=== PATIENT | male | born 1960 | race Caucasian/White ===

== ENCOUNTER 2023-10-13 16:41 | Emergency (ER) | payer BC, SELFPAY ==
[2023-10-13 16:41] VITALS: BMI 37.5
[2023-10-13 16:45] VITALS: BP 128/85
[2023-10-13 17:00] VITALS: BP 133/77
[2023-10-13 18:00] VITALS: BP 138/84
--- NOTE | 2023-10-13 18:31 | ED.GENMED ---
History of Present Illness
General
Chief Complaint: Weakness
Source: patient
Time Seen by Provider: 10/13/23 17:33
Travel History
Have you had any contact with someone who has COVID-19?: No
Do you have any symptoms of coronavirus? Fever > 100 degrees, chills, cough, shortness of breath, sore throat, loss of taste or smell, muscle aches, or headache?: No
History of Present Illness
History of Present Illness:
63-year-old male presents to the emergency room complaining of cough, fever, chills, muscle aches. Patient states he feels 'the worst he is ever felt'. He has a cough which is not particularly productive. He does have a history of asthma but has
not been using inhalers much. Patient did contact his primary care provider who called in a prescription for a Z-Kodak which she started yesterday. He does not feeling better.
Past History
Past History
ED Past Medical History: Asthma, HTN and Other (obesity, renal stones, diverticulitis)
ED Past Surgical History: None
Social History
Tobacco: Non-smoker
Phy Exam
Physical Exam
Physical Exam:
General: Awake, Alert, Oriented X3. No acute distress.
Vitals: unremarkable
Head: Atraumatic
Eyes: Pupils equal, EOMI
Throat: Airway intact, no exudates
Neck: Trachea midline
Lungs: X-ray wheezing bilaterally
Heart: Regular rate, no murmurs
Abd: Soft, Nontender, No pulsatile mass
Neuro: Nonfocal
Skin: Warm, dry, no rash
Extremities: pulses equal b/l, no edema
Course
Orders/Labs/Results
Orders:
Orders
10/13/23 18:15
Chest [CR Chest - 2 Views ] Urgent
Comment:
Reason For Exam: cough
10/13/23 18:27
0.9% Sodium Chloride 500 ml [Nss] 500 ml IV BOLUS
Ipratropium/Albuterol Sulfate [Duoneb] 3 ml INH R NOW ONE
10/13/23 18:31
Basic Metabolic Panel Urgent
COVID-19 Antigen Urgent
Source: Nasal Swab
Complete Blood Count/With Diff Urgent
Influenza A+B Rapid Molecular Urgent
JEROME Source: Nasal Swab
Specimen Description:
10/13/23 20:20
Dexamethasone Sod Phosphate [Decadron] 10 mg IV NOW STA
Ipratropium/Albuterol Sulfate [Duoneb] 3 ml INH R NOW ONE
Abnormal Lab Results
10/13/23
18:31
WBC 4.0 L 10^3/uL
(4.8-10.8)
Absolute Lymphs (auto) 1.1 L 10^3/uL
(1.2-3.4)
Monocytes % 10.2 H %
(1.7-9.3)
Sodium 134 L mmol/L
(135-145)
BUN 22 H mg/dl
(9-20)
10/13/23 18:31
10/13/23 18:31
Vital Signs
Initial and Last Documented VS:
Initial Vital Signs
Temp Pulse Resp BP Pulse Ox
97.8 F 77 16 128/85 98
10/13/23 16:45 10/13/23 16:45 10/13/23 16:45 10/13/23 16:45 10/13/23 16:45
Last Documented Vital Signs
Temp Pulse Resp BP Pulse Ox
97.8 F 70 22 143/73 99
10/13/23 16:45 10/13/23 19:15 10/13/23 19:15 10/13/23 19:00 10/13/23 19:00
MDM/Problems Addressed
Differential Diagnosis Includes:
Pneumonia, bronchitis, asthma exacerbation
MDM/Problems Addressed:
Chest x-ray shows no acute abnormalities. Patient found to have significant wheezing on exam. He was given nebs and steroids. After treatment he was feeling better. He still had some expiratory wheezing but he felt well enough to go home. I did
discuss hospitalization versus discharge with him and he felt like he was well enough to go home. Patient will be discharged with albuterol metered-dose inhaler as well as prednisone.
*Pulse Oximetry
Patient hypoxic: no
*Critical Care Note
Total Time (30-74mins, 75-104mins- exclusive of procedures): Not Applicable
ED Attending Note
-
Portions of this chart may have been created with voice recognition software.� Occasional wrong word or��sound alike� substitutions may have occurred due to the inherent limitations of voice recognition software.
Discharge Plan
Departure
Patient Disposition: Home (Routine Discharge)
Date of Disposition: 10/13/23
Time of Disposition: 20:53
Patient with high blood pressure during this ER visit?: No
Condition: Good
Discharge Problem:
Acute bronchitis
Instructions: Asthma, Adult ED, BLOOD PRESSURE
Prescriptions:
New
albuterol sulfate [ProAir HFA] 90 mcg/actuation HFA aerosol inhaler
2 puff inhalation Q4HPRN PRN (Reason: shortness of breath) Qty: 8.5 0RF
prednisone 20 mg tablet
40 mg PO DAILY Qty: 8 0RF
No Action
esomeprazole magnesium 40 mg Capsule,Delayed Release(Dr/Ec)
40 mg PO PRN PRN (Reason: GERD)
gabapentin 300 mg Capsule
300 mg PO HS
diclofenac sodium 50 mg Tablet,Delayed Release (Dr/Ec)
50 mg PO PRN PRN (Reason: pain)
Hold Instructions: Resume on 03/21/23. Do not take while using ibuprofen. OK to resume when you no longer need the ibuprofen.
lisinopril 40 mg Tablet
40 mg PO HS
cholecalciferol (vitamin D3) [Vitamin D3] 50 mcg (2,000 unit) Tablet
50 mcg PO DAILY
testosterone 30 mg/actuation (1.5 mL) Solution In Metered Pump W/[place]
2 pump TOPICAL DAILY
fluticasone propion-salmeterol [Advair Diskus] 250-50 mcg/dose Blister With Device
1 inh INHALATION PRN PRN (Reason: Coughing)
albuterol sulfate [ProAir HFA] 90 mcg/actuation Hfa Aerosol Inhaler
2 puff INHALATION PRN PRN (Reason: SOB, wheezes)
oxycodone 5 mg tablet
5 - 10 mg PO Q4HPRN PRN (Reason: moderate to severe pain) Qty: 20 0RF
Referrals:
Vtialiy Solo DO [Family Provider] -
Interventions
Interventions:
*Risk Screen - Suicide Last Done: 10/13/23 20:28
*General Assessment Last Done: 10/13/23 20:28
ED- Fall Risk Assessment Last Done: 10/13/23 18:11
*ED COVID-19 Vaccine History Last Done: 10/13/23 16:45
*Nursing Disposition Last Done: 10/13/23 21:01
ED- Cardiac Assessment Last Done: 10/13/23 18:11
ED- Neurological Assessment Last Done: 10/13/23 18:11
ED- Pulmonary Assessment Last Done: 10/13/23 18:11
Discharge Date and Time
Discharge Date/Time: 10/13/23 21:05
[2023-10-13] MEDS: NSS 500 IV (18:37)
[2023-10-13] MEDS: DUONEB 3 ML INH ×2 (18:37→20:23)
[2023-10-13 18:51] LABS: % Basophils 0.5 % (0-2); % Eosinophils 1.7 % (0-6); % Immature Granulocytes 0.2 % (0-0.5); % Monocytes 10.2 % (1.7-9.3); % Neutrophils 60.4 % (42.2-75.2); Absolute Eosinophils 0.1 10^3/uL (0-0.7); Absolute Lymphocytes 1.1 10^3/uL (1.2-3.4); Absolute Monocytes 0.4 10^3/uL (0.1-0.6); Absolute Neutrophils 2.4 10^3/uL (1.4-6.5); Hematocrit 47.9 % (39.0-52.0); Hemoglobin 16.7 g/dL (13.0-18.0); Mean Corp Hgb Conc. 34.9 g/dL (33.0-37.0); Mean Corpuscular Hgb 30.1 pg (27.0-31.0); Mean Corpuscular Volume 86.3 fL (80.0-94.0); Mean Platelet Volume 10.2 fL (7.4-10.4); Nucleated Red Blood Cells % 0 % (-); Platelet Count 192 10^3/uL (130-400); Red Blood Cell Count 5.55 10^6/uL (4.70-6.10); Red Cell Dist. Width 13.1 % (11.5-14.5)
[2023-10-13 19:00] VITALS: BP 143/73
[2023-10-13 19:03] LABS: Blood Urea Nitrogen 22 mg/dl (9-20); Calcium 8.9 mg/dl (8.4-10.2); Carbon Dioxide 24 mmol/L (22-30); Chloride 100 mmol/L (98-107); Estimated Creatinine Clearance 116 ml/min; Glucose 95 mg/dl (70-99); Potassium 4.8 mmol/L (3.5-5.1); Sodium 134 mmol/L (135-145); eGFR > 60.00
[2023-10-13 19:07] LABS: COVID-19 Antigen Negative (Negative)
[2023-10-13] MEDS: DECADRON 10 MG IV (20:23)
== END 2023-10-13 21:05 | disposition home or self-care (01) ==
LOC: EMR 16:41
PROVIDERS: EMERGENCY PHYSICIAN Emergency Medicine; FAMILY PHYSICIAN Family Medicine
DX: J20.9 Acute bronchitis, unspecified (principal); J45.909 Unspecified asthma, uncomplicated; E66.9 Obesity, unspecified; I10 Essential (primary) hypertension; Z87.442 Personal history of urinary calculi
CPT/HCPCS: 99284; 96374; 96361; 71046; 80048; 85025; 87502; 87811

== ENCOUNTER → 2024-06-27 09:49 | Outpatient (REF) | payer BC, SELFPAY | LOC: HWRAD 09:49 | PROVIDERS: ATTENDING PHYSICIAN Family Medicine | DX: M25.562 Pain in left knee (principal) | CPT/HCPCS: 73564 ==

== ENCOUNTER 2025-04-25 00:11 | Emergency (ER) | payer BC, SELFPAY ==
[2025-04-25 00:19] VITALS: BP 157/101
--- NOTE | 2025-04-25 00:34 | ED.GENMED ---
History of Present Illness
General
Chief Complaint: Flank Pain
Source: patient
Exam Limitations: none
Time Seen by Provider: 04/25/25 00:33
Nursing documentation reviewed up to this point in time: agreed with
History of Present Illness
History of Present Illness:
Note:
CHIEF COMPLAINT(S)
Right-sided abdominal and back pain.
HISTORY OF PRESENT ILLNESS
The patient is a 67-year-old male with pmh of htn, diverticulitis, asthma, renal stones, who presents with right-sided abdominal and back pain that he describes as hurting him, particularly when he lies down. The pain started before March 08 with
minor intensity got better but than but has worsened significantly. He reported difficulty sleeping last night due to the pain, which was exacerbated today. The pain, described as coming and going, is primarily in the back but occasionally wraps
around to the front. It tends to flare up after eating, exemplified by increased pain after eating hard-boiled eggs this morning. He denies vomiting but mentions experiencing nausea at times. He reports no chest pain or shortness of breath, and the
pain is not consistent with previous experiences of kidney stones but feels similar to past episodes of diverticulitis. He denies any diarrhea or constipation. He denies any fevers or chills. He had a hernia repair surgery in the past but denies
any other history of intra-abdominal surgeries. He denies chest pain or shortness of breath. He denies any hematuria. Back pain also feels similar to his musculoskeletal pain when he had to have epidural injections in the past.
PAST MEDICAL AND SURGICAL HISTORY
The patient has a history of hypertension, managed with lisinopril 20 mg. He has asthma and a history of diverticulitis. He has had about seven kidney stones in the past. Hernia repair surgery in the past
CHRONIC MEDICAL CONDITIONS SIGNIFICANTLY AFFECTING CARE
1. Hypertension
2. Asthma
3. Past hx of diverticulitis
PHYSICAL EXAM
General: Alert, no acute distress.
Skin: Warm, dry.
Head: Normocephalic, atraumatic.
Neck: Supple, trachea midline.
Eyes, Ears, Nose, Mouth, and Throat: Oral mucosa moist.
Cardiovascular: Normal peripheral perfusion, no edema.
Respiratory: Respirations are non-labored.
Gastrointestinal: Tenderness noted upon palpation, more pronounced on the right side of the abdomen in both quadrants s. Abdomen nondistended. Normoactive bowel sounds. No CVA tenderness.
Musculoskeletal: Normal range of motion, normal strength, no midline spinal tenderness.
Neurological: Alert and oriented to person, place, time, and situation. No focal neurological deficit observed.
Psychiatric: Cooperative, appropriate mood & affect.
PLAN
1. Obtain a CT scan of the abdomen and pelvis
2. Administer Toradol through IV for pain relief.
3. Conduct blood work and obtain a urine sample.
DIFFERENTIAL DIAGNOSIS
The Differential Diagnosis includes, in no particular order and is not limited to:
1. Diverticulitis
2. Gallbladder disease (cholecystitis)
3. Kidney stones
4. Musculoskeletal strain
5. Pancreatitis
6. Peptic ulcer disease
7. Hepatitis
8. Gastroenteritis
9. Appendicitis
10. Gastritis
UPDATE
2:02 am-- Patient reports that his pain is increasing and feels uncomfortable, patient already had toradol, will give small dose of morphine
CHART REVIEW
Reviewed ER physician documentation from 10/13/2023 patient seen for acute bronchitis
Reviewed operative report from 03/14/2023 patient seen for incarcerated inguinal hernia
Reviewed physician office notes from 03/14/2023
MDM/DISPOSITION
The patient is a 67-year-old male with pmh of htn, diverticulitis, asthma, renal stones, who presents with right-sided abdominal and back pain that he describes as hurting him, particularly when he lies down. The pain has been going on for about a
month and a half but has gotten acutely worse this past week. Pain seems to be worse with lying down or with eating. He denies any vomiting. He has no fevers or chills. On physical exam, he is well-appearing and in no acute distress. He does
have some tenderness palpation of the right side of his abdomen but no guarding. No CVA tenderness. No midline spinal tenderness.
Labs reviewed, no leukocytosis noted, CMP significant for elevated BUN to creatinine ratio patient was given IV fluids. Discussed hydration. Urinalysis reviewed no signs of infection. Patient reports that this episode feels like to when he has
had diverticulitis in the past. Patient went for CAT scan which was negative for acute diverticulitis and negative for renal stones. Discussed findings with patient. Suspect possible musculoskeletal etiology. Patient will follow-up with his
primary care provider. Patient questions whether he will need another epidural injection In his spine. Patient stable for discharge. Discussed strict return precautions.
Past History
Past History
ED Past Medical History: Asthma, HTN and Other (obesity, renal stones, diverticulitis)
ED Past Surgical History: None
Social History
Tobacco: Non-smoker
Review of Systems
Review of Systems
All Other Systems: ROS reviewed and negative except as documented in HPI and ROS
Phy Exam
Physical Exam
Physical Exam:
see hpi
Course
Orders/Labs/Results
Orders:
Orders
04/25/25 00:45
Complete Blood Count/With Diff Urgent
Comprehensive Metabolic Panel Urgent
Lipase Urgent
Comment: ADDED
Urinalysis Reflex To Culture Urgent
Date Specimen was Collected: 04/25/25
Time Specimen was Collected: 00:40
Urine Microscopic Reflex Cult Urgent
Urine Culture Urgent
[facility] Source: U
Specimen Description:
Date Specimen was Collected: 04/25/25
Time Specimen was Collected: 00:40
04/25/25 00:48
Add On- LAB Urgent
Tests Added?: lipase
04/25/25 00:49
CT Abd/pelvis W Iv Cont Urgent
Comment:
Reason For Exam: RLQ ab pain
0.9% Sodium Chloride 500 ml [Nss] 500 ml IV BOLUS
Ketorolac [Toradol] 15 mg IV NOW STA
04/25/25 02:02
Morphine Sulfate 2 mg IV NOW STA
Abnormal Lab Results
04/25/25
00:45
Monocytes % 9.4 H %
(1.7-9.3)
BUN 31 H mg/dl
(9-20)
Urine Ketones 1+ A
(Negative)
Leukocyte Esterase Rfl 1+ A
(Negative)
Urine Bacteria (Reflex) Few A
(Negative)
Urine Albumin (Reflex) 1+ A
(Neg - Trace)
04/25/25 00:45
04/25/25 00:45
Vital Signs
Initial and Last Documented VS:
Initial Vital Signs
Temp Pulse Resp BP Pulse Ox
98.2 F 67 18 157/101 96
04/25/25 00:19 04/25/25 00:19 04/25/25 00:19 04/25/25 00:19 04/25/25 00:19
Last Documented Vital Signs
Temp Pulse Resp BP Pulse Ox
98.2 F 55 20 144/82 98
04/25/25 00:19 04/25/25 02:00 04/25/25 02:00 04/25/25 03:00 04/25/25 03:15
*Pulse Oximetry
SaO2: 96
Oxygen Mode of Delivery: Room air
Patient hypoxic: no
*Critical Care Note
Total Time (30-74mins, 75-104mins- exclusive of procedures): Not Applicable
ED Attending Note
-
Portions of this chart may have been created with voice recognition software.� Occasional wrong word or��sound alike� substitutions may have occurred due to the inherent limitations of voice recognition software.
Discharge Plan
Departure
Patient Disposition: Home (Routine Discharge)
Date of Disposition: 04/25/25
Time of Disposition: 03:10
Patient with high blood pressure during this ER visit?: Yes
Condition: Good
Discharge Problem:
Abdominal pain, Back pain
Instructions: Back Pain, Abdominal Pain, BLOOD PRESSURE
Prescriptions:
No Action
gabapentin 300 mg Capsule
300 mg PO HS
lisinopril 40 mg Tablet
20 mg PO HS
testosterone 30 mg/actuation (1.5 mL) Solution In Metered Pump W/[place]
2 pump TOPICAL DAILY
fluticasone propion-salmeterol [Advair Diskus] 250-50 mcg/dose Blister With Device
1 inh INHALATION PRN PRN (Reason: Coughing)
Referrals:
UNKNOWN - PT DOES,NOT KNOW [Family Provider]
Activity Restrictions/Additional Instructions:
Please follow-up with your primary care provider. As discussed, your blood work is unremarkable and your urinalysis is normal. Your CAT scan does not show signs of any acute intra-abdominal problem.
PLEASE RETURN TO THE ER SHOULD YOU DEVELOP ANY ACUTE WORSENING OF YOUR SYMPTOMS, FEVERS OR CHILLS, INTRACTABLE NAUSEA OR VOMITING, DARK TARRY STOOLS, RECTAL BLEEDING, OR ANY OTHER SIGNS OR SYMPTOMS WORRISOME TO YOU.
Interventions
Interventions:
*Risk Screen - Suicide Last Done: 04/25/25 00:19
*General Assessment Last Done: 04/25/25 02:27
*Neglect/Abuse Screening Last Done: 04/25/25 00:19
*ED- Fall Risk Assessment Last Done: 04/25/25 02:27
*ED COVID-19 Vaccine History Last Done: 04/25/25 02:27
*Nursing Disposition Last Done: 04/25/25 03:29
JV-Fjfeku-Dptwzlbykm Assessment Last Done: 04/25/25 02:25
ED-Male Genitourinary Assessment Last Done: 04/25/25 02:25
Discharge Date and Time
Discharge Date/Time: 04/25/25 03:29
Print Language: [id number]
[2025-04-25 00:49] VITALS: BMI 35.2
[2025-04-25] MEDS: TORADOL 15 MG IV (00:58)
[2025-04-25] MEDS: NSS 500 IV (00:58)
[2025-04-25 01:03] LABS: Urine Character Clear (Clear)
[2025-04-25 01:08] LABS: Hematocrit 51.0 % (39.0-52.0); Hemoglobin 17.0 g/dL (13.0-18.0); Mean Corp Hgb Conc. 33.3 g/dL (33.0-37.0); Mean Corpuscular Volume 89.5 fL (80.0-94.0); Nucleated Red Blood Cells % 0 % (-); Platelet Count 216 10^3/uL (130-400); Red Cell Dist. Width 13.3 % (11.5-14.5)
[2025-04-25 01:25] LABS: ALT (SGPT) 29 U/L (0-50); AST (SGOT) 33 U/L (17-59); Albumin 4.5 g/dl (3.5-5.0); Alkaline Phosphatase 53 U/L (38-126); Blood Urea Nitrogen 31 mg/dl (9-20); Calcium 9.1 mg/dl (8.4-10.2); Carbon Dioxide 26 mmol/L (22-30); Chloride 104 mmol/L (98-107); Estimated Creatinine Clearance 89 ml/min; Glucose 86 mg/dl (70-99); Potassium 4.4 mmol/L (3.5-5.1); Sodium 137 mmol/L (135-145); Total Protein 6.7 g/dl (6.3-8.2); eGFR > 60.00
[2025-04-25 01:43] LABS: Lipase 54 U/L (23-300)
[2025-04-25 02:00] LABS: Urine Red Blood Cell None Seen /HPF (0-2); Urine Squamous Cell 0-2 /LPF (Few)
[2025-04-25] MEDS: MORPHINE SULFATE 2 MG IV (02:05)
[2025-04-25 02:06] VITALS: BP 129/87
[2025-04-25 03:00] VITALS: BP 144/82
== END 2025-04-25 03:29 | disposition home or self-care (01) ==
LOC: EMR 00:11
PROVIDERS: Physician Assistant; EMERGENCY PHYSICIAN Emergency Medicine
DX: R10.9 Unspecified abdominal pain (principal); M54.9 Dorsalgia, unspecified; I10 Essential (primary) hypertension; J45.909 Unspecified asthma, uncomplicated; E66.9 Obesity, unspecified; Z68.35 Body mass index [BMI] 35.0-35.9, adult; Z87.442 Personal history of urinary calculi
CPT/HCPCS: 99284; 96374; 96375; 96361; 74177; 80053; 81003; 81015; 83690; 85025; 87086; Q9967

== ENCOUNTER → 2025-05-17 09:40 | Outpatient (REF) | payer BC, SELFPAY | LOC: HWRAD 09:40 | PROVIDERS: ATTENDING PHYSICIAN Urology; FAMILY PHYSICIAN Family Medicine | DX: R97.20 Elevated prostate specific antigen [PSA] (principal); R39.198 Other difficulties with micturition; N20.0 Calculus of kidney | CPT/HCPCS: 74018; 76770 ==